=== PATIENT | male | born 1970 | race Caucasian/White ===

== ENCOUNTER 2019-10-27 08:09 | Day surgery (SDC) | payer BC ==
[~2019-10-27] VITALS: Ht 175.3 cm; Wt 94.8 kg
[~2019-10-27 08:09] MED LIST: FLAGYL500 MG PO; LEVAQUIN500 MG PO; NORCO 5-325 TA1 EACH PO; ZOFRAN8 MG PO
--- NOTE | 2019-10-27 10:40 | NUR ---
10/27/19 1040 Alma Otero 1031 PATIENT ARRIVING AWAKE, ASKING QUESTIONS ABOUT PROCEDURE.
--- NOTE | 2019-10-27 13:30 | OR ---
[facility] [address], [place] [address] Signed DATE OF OPERATION: 10/27/2019 SURGEON: Crista Pulliam MD PREOPERATIVE DIAGNOSES: 1. Generalized abdominal pain. 2. Diarrhea. 3. Mucus. 4. Intermittent blood per rectum. 5. Unspecified colonic mass in mid sigmoid colon on CT scan. POSTOPERATIVE DIAGNOSES: 1. 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 2. Minimal esquivel-diverticulosis. 3. Colonic polyps x5 distal right colon/hepatic flexure. 4. 12 mm sessile polyp proximal transverse colon (tattoo). 5. Distal rectal polyps x4 (4 mm). 6. 10 mm polyps x2 at 12 cm. PROCEDURE: Colonoscopy with snare polypectomy, hot biopsy and tattoo at proximal transverse colon. INDICATIONS: Romy is a 49-year-old gentleman asked to see me for a colonoscopy. He said the last nine months, he has been having crampy abdominal pain, particularly on the left and right lower quadrant. He often has diarrhea, blood and mucus. He had been to his primary care provider. He took Levaquin and Flagyl back at the end of August. He thought maybe he felt better. He had a CT scan at the end of August 2019 and there was eccentric wall thickening in his mid sigmoid colon with narrowing and pericolonic stranding. He has a small umbilical hernia and small bilateral inguinal hernias. No involvement of the rectum. He was asked to see me for his colonoscopy. He tells me there is no family history of colon cancer or polyps. No family history of inflammatory bowel disease. He has been online reading on the Internet. He is convinced he has ulcerative colitis. In the office, I gave Merna booklet on colonoscopy. We looked at that together along with the risks including, but not limited to gas bloating, crampy abdominal pain, bleeding, perforation requiring surgery, and missed diagnosis. We also discussed the need for IV conscious sedation. He had expressed understanding and wished to proceed. PROCEDURE NOTE: Electronically Signed By: CRISTA PULLIAM MD 10/27/19 1330 PATIENT NAME: ROMY OLSON OPERATIVE REPORT DATE OF : 74 REPORT #: [id number] PHYSICIAN: CRISTA PULLIAM MD PCP: CRUZ HERNANDEZ MD REPORT IS CONFIDENTIAL AND NOT TO BE RELEASED WITHOUT AUTHORIZATION [facility] [address], [place] [address] Signed Romy was taken into our endoscopy suite and placed in the left lateral decubitus position. He was given a total of 8 mg of Versed and 225 mcg of fentanyl to cover the case. A digital rectal exam was performed and this was unremarkable. No external hemorrhoids and good sphincter tone. The adult colonoscope was introduced and advanced up to 20 cm where we encountered his circumferential distal sigmoid colonic mass/tumor. The adult colonoscope could not fit through the lumen. We went ahead and took a couple of biopsies from the distal end of that tumor. We also removed the polyps in the rectum with a hot biopsy forceps. We used the snare on the two larger polyps at about 12 cm. After this, we retroflexed the scope and there was no additional pathology noted above the anal canal. We then exchanged our adult colonoscope for the adult gastroscope. The adult gastroscope was introduced up to the tumor at 20 cm. It was just able to fit through the lumen, which means it is 10 mm in diameter. That tumor is fairly long actually. Once we got proximal to the tumor, the colon opened up nicely and we traveled all around to the cecum itself. His prep was quite good. We could easily see the appendiceal orifice and the ileocecal valve. The prep was quite good. We took multiple pictures for photodocumentation. As the scope was withdrawn, we removed the above mentioned polyps in the distal right colon, hepatic flexure and proximal transverse colon with the help of a hot biopsy forceps as well as the snare. The largest was in the proximal transverse colon, so we left a tattoo immediately underneath that tattoo at that location. We saw just a single diverticulum in the proximal right colon with some stool. He had a few small diverticula in the proximal to mid sigmoid colon. Again, the scope was withdrawn back down through the tumor. The gas was suctioned out and the adult gastroscope had been removed. Romy had tolerated his procedure quite well. RECOMMENDATIONS: We will send for a CEA level in the recovery room. I will review this with Romy and his . He will need a CT scan of his chest and he will need the sigmoid colon resected, possibly a total abdominal colectomy depending on the pathology results. Crista Pulliam MD ALB/ESPERANZAL /[id number] cc: Cruz Hernandez MD Electronically Signed By: CRISTA PULLIAM MD 10/27/19 1330 PATIENT NAME: ROMY OLSON OPERATIVE REPORT DATE OF : 74 REPORT #: [id number] PHYSICIAN: CRISTA PULLIAM MD PCP: CRUZ HERNANDEZ MD REPORT IS CONFIDENTIAL AND NOT TO BE RELEASED WITHOUT AUTHORIZATION [facility] [address] [place], [place] [address] Signed Crista Pulliam MD Copies: CRISTA PULLIAM MD ~ Electronically Signed By: CRISTA PULLIAM MD 10/27/19 1330 PATIENT NAME: ROMY OLSON OPERATIVE REPORT DATE OF : 74 REPORT #: [id number] PHYSICIAN: CRISTA PULLIAM MD PCP: CRUZ HERNANDEZ MD REPORT IS CONFIDENTIAL AND NOT TO BE RELEASED WITHOUT AUTHORIZATION
--- NOTE | 2019-10-31 13:42 | PATH ---
[facility] [address] [facility] [place] [address] Signed SPECIMEN(S): A COLON POLYPS AT 12 CM SPECIMEN(S): B RECTAL POLYP SPECIMEN(S): C COLON MASS AT 20 CM SPECIMEN(S): D DISTAL ASCENDING POLYP SPECIMEN(S): E PROXIMAL TRANSVERSE POLYP SPECIMEN(S): F COLON POLYP AT 50 CM SPECIMEN SOURCE: A. COLON POLYPS AT 12 CM B. RECTAL POLYP C. COLON MASS AT 20 CM D. DISTAL ASCENDING POLYP E. PROXIMAL TRANSVERSE POLYP F. COLON POLYP AT 50 CM CLINICAL HISTORY: Abdominal pain, abnormal CT. Dx: 20 cm mass, polyps. MICROSCOPIC DESCRIPTION: Histologic sections of all submitted blocks are examined by light microscopy. These findings, together with the gross examination, support the pathologic diagnosis. FINAL PATHOLOGIC DIAGNOSIS: A. Colon, polyps at 12 cm, polypectomy: - Fragments of hyperplastic polyps. - Negative for dysplasia or malignancy. B. Rectum, polyps, polypectomy: - Fragments of hyperplastic polyps. - Negative for dysplasia or malignancy. C. Colon, mass at 20 cm, biopsy: - Well differentiated invasive adenocarcinoma. - See comment. D. Colon, distal ascending, polyp, polypectomy: - Fragments of tubulovillous adenoma. - Negative for high-grade dysplasia or malignancy. E. Colon, proximal transverse, polyp, polypectomy: - Fragments of tubulovillous adenoma. - Negative for high-grade dysplasia or malignancy. F. Colon, polyp at 50 cm, polypectomy: - Colonic mucosa with polypoid hyperplasia. - Negative for dysplasia or malignancy. PATIENT NAME: ROMY OLSON PATHOLOGY DATE OF : 74 REPORT #: [id number] PHYSICIAN: JIMMIE PATHOLOGY PCP: LILLY HERNANDEZ MD REPORT IS CONFIDENTIAL AND NOT TO BE RELEASED WITHOUT AUTHORIZATION [facility] [address] [place], [place] [address] Signed COMMENT: As part of [facility]' Quality Improvement Program, part C of this case was reviewed by another member of our pathology staff. The results of part C were discussed with Dr. Del Rio on 10/31/2019. Mismatch repair (MMR) testing by IHC has been ordered and will be reported by addendum. BRAF mutation testing may not be indicated in the absence of metastatic disease and has not been ordered. If testing is desired, please contact [facility] with prior authorization if applicable. NAL:BES:cml:C1NR GROSS DESCRIPTION: Six specimens are received in six containers, labeled "KAREEM." A. The specimen, labeled "KAREEM, colon polyps at 12 cm," is received in formalin and consists of four pink-salinas soft tissue fragment(s) that measure 0.2-0.6 cm in greatest dimension. The biggest tissue fragment is inked and bisected. The specimen is entirely submitted in cassette (A1). B. The specimen, labeled "KAREEM, rectal polyps," is received in formalin and consists of four pink-salinas soft tissue fragment(s) that measure 0.2-0.3 cm in greatest dimension. The specimen is entirely submitted in cassette (B1). C. The specimen, labeled "KAREEM, colon mass at 20 cm," is received in formalin and consists of three pink-salinas soft tissue fragment(s) that measure 0.2-0.3 cm in greatest dimension. The specimen is entirely submitted in cassette (C1). D. The specimen, labeled "KAREEM, distal ascending polyp," is received in formalin and consists of nine pink-salinas soft tissue fragment(s) that measure 0.1-0.7 cm in greatest dimension. The biggest tissue fragment is inked and trisected. The specimen is entirely submitted in cassette (D1). E. The specimen, labeled "KAREEM, proximal transverse polyp," is received in formalin and consists of four pink-salinas soft tissue fragment(s) that measure 0.2-1.1 cm in greatest dimension. The biggest tissue fragment is serial sectioned and entirely submitted in single cassette (E2). The specimen is entirely submitted in cassette (E1-E2). F. The specimen, labeled "KAREEM, colon polyp at 50 cm," is received in formalin and consists of one pink-salinas soft tissue fragment that measures 0.2 cm in greatest dimension. The specimen is entirely submitted in cassette (F1). PATIENT NAME: ROMY OLSON PATHOLOGY DATE OF : 74 REPORT #: [id number] PHYSICIAN: JIMMIE PATHOLOGY PCP: LILLY HERNANDEZ MD REPORT IS CONFIDENTIAL AND NOT TO BE RELEASED WITHOUT AUTHORIZATION [address] [address] Signed JS (under the direct supervision of a pathologist) The Gross Description was prepared using a voice recognition system. The report was reviewed for accuracy; however, sound-alike word errors, addition and/or deletions may occur. If there is any question about this report, please contact Client Services. PERFORMING LABORATORY: The technical component was performed by [facility], [address] [place] [id number] (Fisheries Diver: Jessica Osorio MD; CLIA# [id number]). [facility], [address] [place] [address] (Fisheries Diver: Mike Chamberlain MD; CLIA# [id number]). Diagnostician: Megha Tuttle MD Pathologist Electronically Signed 10/31/2019 Copies: ~ PATIENT NAME: ROMY OLSON PATHOLOGY DATE OF : 74 REPORT #: [id number] PHYSICIAN: JIMMIE MARRERO PCP: LILLY HERNANDEZ MD REPORT IS CONFIDENTIAL AND NOT TO BE RELEASED WITHOUT AUTHORIZATION
== END 2019-10-27 11:16 | disposition home or self-care (01) ==
LOC: DS 08:09 → OPS 08:09 → DS 09:45 → OPS 09:45
PROVIDERS: Colon & Rectal Surgery
PROC: 0DBL8ZZ Excision of Transverse Colon, Via Natural or Artificial Opening Endoscopic (ICD-10-PCS; 2019-10-27)
PROC: 0DBE8ZZ Excision of Large Intestine, Via Natural or Artificial Opening Endoscopic (ICD-10-PCS; 2019-10-27)
PROC: 0DBP8ZZ Excision of Rectum, Via Natural or Artificial Opening Endoscopic (ICD-10-PCS; 2019-10-27)
PROC: 0DBK8ZZ Excision of Ascending Colon, Via Natural or Artificial Opening Endoscopic (ICD-10-PCS; principal; 2019-10-27 09:45)
DX: C18.9 Malignant neoplasm of colon, unspecified (principal); D12.2 Benign neoplasm of ascending colon; D12.3 Benign neoplasm of transverse colon; K57.31 Diverticulosis of large intestine without perforation or abscess with bleeding; K63.5 Polyp of colon; K62.1 Rectal polyp; I10 Essential (primary) hypertension; F17.210 Nicotine dependence, cigarettes, uncomplicated; Z79.899 Other long term (current) drug therapy
CPT/HCPCS: 36415; 82378; 99153; G0500; J2250; J3010; J7121

== ENCOUNTER 2019-11-14 13:24 | Inpatient (IN) | payer BC ==
[~2019-11-14] VITALS: Ht 175.3 cm; Wt 86.9 kg
--- NOTE | 2019-11-25 08:06 | NUR ---
PT ALERT, ORIENTED AND SUPPORTED BY HIS AND OTHER VISITORS. GAVE ENCOURAGEMENT, OUTLINED TODAY. PT THANKED ME AND REQUESTED PRAYER. WILL FOLLOW NEEDED
--- NOTE | 2019-11-25 09:00 | NUR ---
DENIES ANY NEEDS. IV SITE BENIGN. ABX STARTED.
--- NOTE | 2019-11-25 10:08 | NUR ---
NUT PICKER CS GIVEN HEPARIN TO GIVE AFTER BLOCKS.
--- NOTE | 2019-11-25 13:37 | NUR ---
11/25/19 1337 Sheets,Anne 1332 PT ARRIVED TO PACU ON 6L VIA MASK, ORAL AIRWAY IN PLACE. RESP EVEN AND UNLABORED. PT NONAROUSABLE. ICE TO ABD. VSS.
--- NOTE | 2019-11-25 14:50 | NUR ---
PT ARRIVED TO FLOOR VIA STRETCHER WITH EYES CLOSED. AWAKES TO VERBAL STIMULI. REPORTS PAIN AT 8/10. 0.5 DILAUDID ADMINSTERED. IV FLUIDS STARTED AND MEDICAITONS GIVEN. DRESSING TO ABDOMEN C/D/I WITH GAUZE AD TAPE PRESENT. CPOX PLACED. 2L NC IN PLACE. SCD'S ON. VITALS TAKEN AND STABLE. CALL LIGHT IN REACH.
--- NOTE | 2019-11-25 16:00 | NUR ---
PATIENT LYING IN BED WITH EYES CLOSED. SATS 99 ON 2L NC. PATIENT REPORTS PAIN 8/10. PAIN MEDS ADMINISTERED. FAMILY AT BEDSIDE. CALL LIGHT IN REACH.
--- NOTE | 2019-11-25 16:50 | NUR ---
VITALS TAKEN. BLOOD PRESSURE ELEVATED. DR PULLIAM NOTIFIED. 1MG DILAUDID GIVEN FOR 910 PAIN. DRESSING STILL C/D/I. BOWEL TONES ACTIVE. D5LR AT 100 INFUSING. 2L NC STILL IN PLACE. CPOX ON. CALL LIGHT IN REACH.
--- NOTE | 2019-11-25 19:19 | NUR ---
PT REPORTING 9/10 PAIN AFTER AMBULATING TO BATHROOM. VOIDED 400 ML. PRN PAIN MEDICAITON AND ZOFRAN ADMINSITERED. CALL LIGHTI N REACH CPOX IN PLACE, SCD'S ON.
--- NOTE | 2019-11-25 20:14 | NUR ---
c/o 05/21 abd pain, medicatged with 2 norco
--- NOTE | 2019-11-25 21:37 | NUR ---
VOUCHER CLERK ROUNDING NOTE. PT RESTING IN BED WITH EYES CLOSED. SLEEPING IN CHAIR NEXT TO BED. PT DOES NOT WAKE WHILE WRTIER AT DOORWAY. CALL IGHT IN REACH. WHITE BOARD UPDATED.
--- NOTE | 2019-11-25 21:38 | NUR ---
c/o 05/21 abd pain, norco not effective, medicated with dilaudid 1mg IV.
--- NOTE | 2019-11-25 22:40 | NUR ---
C/O ABD PAIN, MEDICATED WITH 800MG MOTRIN FOR 7/10 ABD PAIN. MIDLINE ABD DRESSING CDI. EMMANUELLE, SCDS IN PLACE, CPOX IN PLACE
--- NOTE | 2019-11-26 00:08 | NUR ---
C/O 04/20 ABD PAIN, MEDICATED WITH DILAUDID 1MG IV. REPOSITINED IN BED.
--- NOTE | 2019-11-26 01:39 | NUR ---
up to br, voided large amount of yellow urine, back to bed, belching, denied passing gas rectally, abd incision dressing cdi. IVF infusing w/o problems. C/o 7-05/21 abd pain, medicated with Dilaudi 1mg IV, and 1 po norco. Repositioned in bed, O2 back on, scds in place. Continuous on fluids restrictions, call light at bedside, CPOX in place, sats 96-100%
--- NOTE | 2019-11-26 03:22 | NUR ---
aWAKES EASILY, NO FURTHER C/O ABD PAIN AT THIS TIME, o2 IN P[LACE, SCDS, cpox 99% 2lnc. CALL LIGHT AT BEDSIDE, FAMILY ROOMING IN
--- NOTE | 2019-11-26 04:58 | NUR ---
C/O ABD PAIN 03/21, MEDICATED WITH DILAUDID 1MG IV. UP TO BR, VOIDED, BACK TO BED, TOLERATED WELL, NO FURTHER C/O PENILE PAIN EITHER, NO N/V, CPOX IN PLACE, O2 2L NC IN PLACE, SCDS IN, CALL LIGHT AT BEDSIDE
--- NOTE | 2019-11-26 05:02 | NUR ---
PT HAD A SIGNOID COLECTOMY SURGERY, MIDLINE ABD INCISION DRESSING CDI, EMMANUELLE, AREA TENDER TO TOUCH, BELCHING, DENIES PASSING RECTAL GAS. HAS BEEN UP TO BR X2, VOIDIING QS, TOLERATED WALKING FAIR. HAS BEEN MEDICTED WITH DILAUDID 1MG IV 4X, MOTRIN 800MG X1, NORCO X2, WITH FAIR PAIN RELIEF. CPOX AND SCDS IN PLACE, WEARING O2 AT 2L NC OFF AND ON THIS SHIFT, SATS 96-100%. TOLERATING FLUID RESTRICTIONS WELL. CALL LIGHT AT BEDSIDE, IN ROOM.
--- NOTE | 2019-11-26 05:37 | NUR ---
PT C/O 5-03/21 ABD PAIN, MEDICATED WITH 1 NORCO. AWAKE, WATCHING TV. BELCHING, DENIES PASSING RECTAL GAS, TOLERATING FLUID RESTRICTIONS
--- NOTE | 2019-11-26 06:47 | OR ---
[facility] [address], [place] [address] Signed DATE OF OPERATION: 11/25/2019 SURGEON: Crista Pulliam MD PREOPERATIVE DIAGNOSIS: Circumferential sigmoid colon cancer (20 cm). 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 PROCEDURE: Sigmoid colectomy with Mora side-to-end colorectal anastomosis, hand-sewn two layers. ESTIMATED BLOOD LOSS: None. FINDINGS: Tumor was lying adjacent to the dome of the bladder. INDICATIONS: Romy is a 49-year-old gentleman who probably for more than one year has been having trouble with lower abdominal crampy pain. He said it is left than the right. He often has blood, mucus, and diarrhea. He had been to his primary care provider. Levaquin and Flagyl were given in August 2019. He seemed to think it was a little better. However, the symptoms seemed to continue, so he had a CT scan of the abdomen and pelvis performed. There was a thickening in the mid to distal sigmoid colon. The rectum did not appear involved. He has no family history of colon cancer or polyps. There is no family history of inflammatory bowel disease. He was referred to me for a colonoscopy on October 27, 2019. He had circumferential sigmoid colon cancer at 20 cm. I had to use the adult gastroscope to get through the tumor and all up to the cecum itself. We took out multiple hyperplastic and tubulovillous adenomatous polyps. We were indeed left a tattoo in the proximal transverse colon. He also had just a little bit of diverticulosis in the colon. We went back and looked at the CT scan. There was no obvious metastatic disease. We ordered a CT scan of his chest. There was no metastatic disease in the chest, but he does have some blebs in his lungs consistent with the smoking. He had a CEA level drawn the day of the colonoscopy and it was slightly elevated at 4.43. I had met with Romy and his in the office. I gave him a brochure on colorectal polyps and cancer. We went through a page by page. I circled the sections relevant to him including the location of the tumor. We reviewed the section surgery and went over that in detail as well. They are aware of the nature of Electronically Signed By: CRISTA PULLIAM MD 11/26/19 0647 PATIENT NAME: ROMY OLSON OPERATIVE REPORT DATE OF : 74 REPORT #: [id number] PHYSICIAN: CRISTA PULLIAM MD PCP: CRUZ HERNANDEZ MD REPORT IS CONFIDENTIAL AND NOT TO BE RELEASED WITHOUT AUTHORIZATION [facility] [address] [place], [place] [address] Signed the surgery along with its risks including, but not limited to bleeding, infection, scarring, change in contour of the skin, damage to the ureters, anastomotic leak, incisional hernias, and other unforeseen comorbidities. We also reviewed the expected intraop and postop course. They had expressed understanding and wished to proceed. PROCEDURE NOTE: I met with Romy, his , and his mom and dad in our preop area. After reviewing their questions, Romy was taken into the operating room and placed in supine position. He was placed under general endotracheal tube anesthesia. He was given preoperative antibiotics along with subcutaneous heparin. SCDs were utilized. A Moody catheter had been inserted with return of clear yellow urine without difficulty. Bilateral tap blocks were placed by our nurse batch unloader. After this, he was prepped and draped in the usual sterile fashion. We utilized a standard periumbilical midline incision and carried this into the abdomen with the help of the cautery. The tumor was lying next to the bladder and it quite readily. We did not see any obvious residual on the dome of the bladder. We took a few minutes along the left white line of Toldt with our cautery and freed up the sigmoid colon longterm to the splenic flexure. We took this down past the tumor into the rectum itself, down into the pelvis next to the rectum. We did the same thing on the right side at the base of the mesentery. We then placed the Bookwalter retractor and packed the small bowel up and out of the way. We identified the left ureter and the right ureter. After this, we went distal to his tumor probably about 4 to 5 cm. We circumferentially cleared the top of the rectum with the help of the cautery and Pean clamps. The top of the rectum was divided with the TA-60 stapler. The mesorectum and mesocolon were then divided between Pean clamps and 0 Vicryl ties. We divided the sigmoid colon about 10 cm or so proximal to the tumor. We had plenty of length to bring the sigmoid colon down to the top of the rectum. We left kelvin in the proximal sigmoid colon specimen and then silk suture on the distal sigmoid colon specimen. The specimen had been opened on the back table by our nurse and pictures were taken for photodocumentation. After this, we performed a standard side-to-end colorectal anastomosis in 2 layers with interrupted silk sutures in continuous running 3-0 Vicryl sutures for the inner layer. The pelvis was then irrigated and suctioned out until clear. The small bowel was then returned to its position. The Bookwalter retractor was removed. We added some additional bupivacaine above the umbilicus in the abdominal wall on either side. After this, the wound was irrigated and suctioned out until clear. We then closed the midline fascia with interrupted [id number] #1 PDS sutures. We then irrigated the wound once again, brought the dermis back together with interrupted 3-0 subcuticular Monocryl sutures. The skin edges were then reapproximated with kelvin. Dry gauze and tape were then applied. Romy's Moody catheter was removed without difficulty. He was awakened from his anesthesia, extubated in the OR, and taken to recovery room in stable condition. Electronically Signed By: CRISTA PULLIAM MD 11/26/19 0647 PATIENT NAME: ROMY OLSON OPERATIVE REPORT DATE OF : 74 REPORT #: [id number] PHYSICIAN: CRISTA PULLIAM MD PCP: CRUZ HERNANDEZ MD REPORT IS CONFIDENTIAL AND NOT TO BE RELEASED WITHOUT AUTHORIZATION [facility] [address] [place] [address] Signed Crista Pulliam MD ALB/MODL /[id number] cc: MD Cruz Quintana MD Andrew L Bower, MD Copies: CECE NICOLAS MD, ANDREW L MD ~ Electronically Signed By: CRISTA PULLIAM MD 11/26/19 0647 PATIENT NAME: ROMY OLSON OPERATIVE REPORT DATE OF : 74 REPORT #: [id number] PHYSICIAN: CRISTA PULLIAM MD PCP: CRUZ HERNANDEZ MD REPORT IS CONFIDENTIAL AND NOT TO BE RELEASED WITHOUT AUTHORIZATION
--- NOTE | 2019-11-26 07:10 | NUR ---
PT LYING IN BED AWAKE. SCD'S IN PLACE. RESPIRATIONS EQUAL AND UNLABORED, SATS 98 RA. REPORTS BELCHING BUT NOT PASSIN GAS. SPOKE WITH PATIENT ABOUT SHOWERING LATER THIS AFTERNOON, PT DECLINES FOR NOW. NO REPORTS OF PAIN. SLEEPING IN ROOM,CALL LIGHT ACCESSIBLE.
--- NOTE | 2019-11-26 09:49 | NUR ---
PT REPORTING 8/10 ABDOMINAL PAIN. PRN NORCO ADMINSTERED. DRANK 200ML FLUID WITH NO PROBLEMS. SBA TO BATHROOM THEN UP TO CHAIR. CALL LIGHT AND PERSONAL ITEMS WITHIN REACH.
--- NOTE | 2019-11-26 10:19 | NUR ---
PATIENT IN CHAIR, VISITORS IN ROOM. CALL LIGHT IN REACH. LINENS CHANGED. CALL LIGHT IN REACH. NO FURTHER NEEDS AT THIS TIME.
--- NOTE | 2019-11-26 13:28 | NUR ---
PATIENT AMBULATED IN DISLA (CIRCLED AROUND NURSING STATION). PAIN REPORTED 6/10. PT ANTICIPATING NEXT SCHEDULED DOSE OF NORCO AT 1345. RESPIRATIONS EQUAL AND UNLABORED ON RA. PATIENT RETURNED TO CHAIR. PARENTS INN ROOM. CALL LIGHT IN REACH.
--- NOTE | 2019-11-26 15:04 | NUR ---
PATIENT IN CHAIR, VISITORS IN ROOM. CALL LIGHT IN REACH. NO FURTHER NEEDS AT THIS TIME.
--- NOTE | 2019-11-26 16:01 | NUR ---
PATIENT UP AD KULWANT SHOWERING. RETURNED TO CHAIR. SATS 99% ON RA. RESPIRATIONS EQUAL AND UNLABORED. PAIN REPORTED 4/10. CONTINUOUS FLUIDS RUNNING AT 100ML/HR. NO NEEDS REPORTED AT THIS TIME. CALL LIGHT IN REACH.
--- NOTE | 2019-11-26 16:09 | NUR ---
PT SALINE LOCKED FOR INDEPENDENT SHOWER. PAIN 03/21. CALL LIGHT IN REACH.
--- NOTE | 2019-11-26 18:35 | NUR ---
PATIENT AMBULATED IN DISLA WITH . REPORTS 7/10 PAIN IN LOWER ABDOMEN. ADMINISTERED NORCO PER ORDER. PATIENT REPORTS NO FLATULENCE BUT BOWEL TONES ARE ACTIVE. PATIENT RETURNED TO BED. SUPPLIED WARM BLANKETS. FAMILY AT BEDSIDE. CALL LIGHT IN REACH.
--- NOTE | 2019-11-26 19:18 | NUR ---
report obtained from Sonja APONTE and Mary Jane WILLS. Pt playing cards with family. Pt will call when family leaves for RN to do assessment. IVF infusing w/o problems, scds in place, abd incisino with ss midline abd intact, pink, dry, call light at bedside, pt tolerating fluid restrictions
--- NOTE | 2019-11-26 20:55 | NUR ---
In bed, coop with assessment, on room air, no c/o pain. midline abd incision with kelvin, edges well approx, pink,dry, scds in place, IVf infusing w/o problems. No c/o N?V, tolerating fluid restriction well
--- NOTE | 2019-11-26 22:32 | NUR ---
PT C/O 7/10 ABD PAIN, BELCHING, DENIES PASSING RECTAL GAS. MEDICATED WITH 2 NORCO., TOLERATING FLUID RESTRICTIONS. FAMILY IN ROOM
--- NOTE | 2019-11-27 00:03 | NUR ---
resting, on room air, no resp distress. IVF infusing, SCDS in place. call light at bedside
--- NOTE | 2019-11-27 02:05 | NUR ---
awake, c/o 6/10 abd pain. Medicated with Ibuprofen 800mg po, tolerating fluids restriction, repositions self in bed, scds in place, on room air
--- NOTE | 2019-11-27 03:32 | NUR ---
aWAKE, C/O 7/10 PAIN, STATED THAT MOTRIN WAS NOT VERY EFFECTIVE, MEDICATED WITH NORCO 2 TABS. UP TO BR INDEPENDENT, VOIDED LARGE AMOUNTS OF DARK YELLOW URINE, BACK TO BED. ABD INCISION W EWA IN PLACE, DENIES PASSING RECTAL GAS, BELCHING, TOLERATING FLUIDS RESTRICTION, CALL LIGHT AT BEDSIDE
--- NOTE | 2019-11-27 06:19 | NUR ---
Pt has been medicated x2 with [place] and 1 MOtrin per abd pain with good to fair pain relief. Belching but not passing recal gas. Midline abd incision with kelvin inplace, pink, dry, well approx edges. scabbing over. IVF infusing, SCDS in place. Tolerating clears w fluid restriction. Has walked up to br and voiding QS urine, gets self back to bed. Call light at bedside
--- NOTE | 2019-11-27 07:10 | NUR ---
RECIEVED BEDSIDE REPORT FROM FADI YAÑEZ. PT IS AWAKE AND ALERT IN BED, FAMILY AT BEDSIDE. IVF RUNNING PER ORDER. PT HAS BEEN INDEPENDENT IN ROOM OVERNIGHT. ENCOURAGE PT TO WALK THIS SHIFT, PT IS AWARE OF POC AND AGREES.
--- NOTE | 2019-11-27 07:26 | NUR ---
pt in bed . c/o 03/21 abd pain, medicated with 2 [place] tabs. Pt stated Passing gas rectally now, several times now. WIll notify incoming RN. Visiting with family
--- NOTE | 2019-11-27 09:04 | NUR ---
RN IN ROOM WHEN MD ROUNDED. ADVANCED DIET TO FULL LIQUID AND REMOVED FLUID RESTRICTION. INCISION IS C/D/I, SLIGHTLY PINK ALONG EDGES BUT WITHIN PRAMATERS. PT IS BELCHING AND PASSING FLATUS. HAS BEEN UP WALKING HALLS X1 THIS MORNING. HE HAS AGREED TO WALK AGAIN AFTER BREAKFAST AND GET IN THE CHAIR. HE HAS PLANS TO PLAY GAMES WITH FAMILY TODAY.
--- NOTE | 2019-11-27 10:13 | NUR ---
PATIENT IN CHAIR WATCHING TV. PATIENT SAID HE DOESNT FEEL WELL AFTER EATING BREAKFAST, RN NOTIFIED. CALL LIGHT IN REACH. NO FURTHER NEEDS AT THIS TIME. LINENS CHANGED. PATIENT WANTS TO SHOWER LATER.
--- NOTE | 2019-11-27 11:45 | NUR ---
PT IS IN BED, DENIES NAUSEA AT THIS POINT, BUT DOES NOT WANT TO ORDER LUNCH. REQUESTED 2 NORCO, GIVEN.
--- NOTE | 2019-11-27 14:44 | NUR ---
PATIENT IN BED, IN ROOM. FRESH WATER GIVEN. CALL LIGHT IN REACH. NO FURTHER NEEDS AT THIS TIME.
--- NOTE | 2019-11-27 15:12 | NUR ---
MED REC COMPLETED. PATIENT STATES HE DOES NOT TAKE ANY ROUTINE MEDICATIONS.
--- NOTE | 2019-11-27 18:06 | NUR ---
PATIENT SITTING IN BED KALINAING STARR WITH FAMILY. COFFEE GIVEN. CALL LIGHT IN REACH. NO FURTHER NEEDS AT THIS TIME.
--- NOTE | 2019-11-27 18:41 | NUR ---
PT HAS BEEN UP WALKING IN HALLS MULTIPLE TIMES WITH HIS FAMILY. HE STATES HIS PAIN IS WELL CONTROLLED WITH PRN NORCO. HE ATE SMALL AMOUNT OF DINNER, TRYING TO AVOID EATING TO MUCH.
--- NOTE | 2019-11-27 19:37 | NUR ---
in bed, gets up to br, voiding QS, coop with assessment. Abd soft, tender, passing gas, midline incision edges well approx, dry, kelvin in place. Fluids at bedside, no c/o n/v.
--- NOTE | 2019-11-27 23:54 | NUR ---
UP TO BR EARLIER, NO FURTHER C/O PAIN, WALKED HALLWAYS UP AND DOWN WITH , PT STATES PASSING RECTAL GAS BUT NOT OFTEN EARLIER IN AM. TOLERATING FULL LIQUID DIET, BACKT O BED, SCDS IN PLACE, ON ROOM AIR, CALL LIGHT AT BEDISE, IVF INFUSING
--- NOTE | 2019-11-28 01:09 | NUR ---
awake, denies further c/o pain, call light at bedside
--- NOTE | 2019-11-28 02:31 | NUR ---
RESTING, NO DITRESS, IVF INFUSING, NO C/O PAIN
--- NOTE | 2019-11-28 04:52 | NUR ---
C/O 04/20 ABD PAIN, MEDICATED WITH 2 NORCO AND 1 MOTRIN 800MG PO. GETS UP TO BR , VOIDING QS. NO C/O N/V
--- NOTE | 2019-11-28 05:03 | NUR ---
PT ON ROOM AIR, MIDLIND AB INCISION W EWA IN PLACE, EDGES PINK, WELL APPROXIMATED, DRY. PASSING GAS, GETS UP TO BR AND HAS BEEN VOIDING QS URINE. HAS BEEN MEDICATED X3 WITH NORCO AND 1X W MOTRIN WITH FAIR TO GOOD PAIN RELIEF. HAS WALKED HALLWAYS WITH . ON FULL LIQUIDS, NO N.V, TOLERATING FAIR. IVF INFUSING W/O PROBLEMS
--- NOTE | 2019-11-28 07:08 | NUR ---
RECIEVED BEDSIDE REPORT FROM FADI YAÑEZ. PT IS UP INDEPENDENTLY TO BATHROOM. PT IS INDEPENDENT IN ROOM. PT NEEDS FREQUENT ENCOURAGEMENT TO GET UP AND WALK, WHICH HE DOES WITH FAMILY. PT IS ANXIOUS ABOUT EATING, ONLY ATE ABOUT 10%, OFFERED REASSURANCE THAT HE IS AT THE EXPECTED POINT OF HEALING, BUT HE WON'T CONTINUE TO HEAL WITHOUT EATING.
--- NOTE | 2019-11-28 08:06 | NUR ---
RN SET PT UP FOR SHOWER. PT IS ABLE TO SHOWER INDEPENDENTLY. REMINDED PT TO SIT DOWN ON PROVIDED SHOWER CHAIR AND CALL RN IF HE FEELS UNSTEADY, LIGHTHEADED, OR HAS ANY OTHER ISSUES. PT AGREED. PT AGREED TO POC, WALKING Q2 HOURS IS THE GOAL, INCREASEING FREQUENCY AND/OR DISTANCE TODAY. WILL ORDER BREAKFAST.
--- NOTE | 2019-11-28 08:45 | NUR ---
Spoke with Genaro at breakfast. States he has multiple concerns of what will be happening in his future. He is currently on FMLA and has concerns regarding the possibility of chemo or radiation. Lives in [place] with his and works at [employer]. Denies use of DME. Plans on returning home on discharge. Denies needs at this time from CM.
--- NOTE | 2019-11-28 10:58 | NUR ---
PT HAS BEEN UP WALKING IN HALLS X1.
--- NOTE | 2019-11-28 11:56 | NUR ---
JPT SITTING UP IN CHAIR, PLAYING TABLE GAME WITH VISITOR. PT MENTIONED THAT HE HASN'T SLEPT WELL, MOSTLY DUE TO PAIN. FELL ASLEEP LAST NIGHT IN SPITE OF PAIN AND SEEMED TO MAKE HIM FEEL THAT IMPROVEMENT WAS HAPPENING. PT STATED THAT HE IS TO AMBULATE EVERY 2 HRS. THE WAY HE STATED IT, IT WAS MORE OF A CHORE THAN AN OPPORTUNITY. GOOD VISIT, PT THANKED ME FOR COMING BY. GAVE BLESSING, AND LET THEM CONTINUE WITH THEIR GAME. WILL FOLLOW NEEDED
--- NOTE | 2019-11-28 13:55 | NUR ---
PT AND HIS FATHER DID ONE SMALL LAP AROUND THE UNIT.
--- NOTE | 2019-11-28 14:04 | NUR ---
PATIENTS VITALS DONE, PATIET PLAYING CHESS WITH FATHER
--- NOTE | 2019-11-28 19:00 | NUR ---
BEDSIDE REPORT RECEIVED FROM OFFGOING RN, JESICA. PT SITTING UP IN CHAIR PLAYING CHECKERS WITH HIS DAD. THIS TOOLROOM HELPER LET PT KNOW PLAN FOR MEDICATION AND ASSESSMENT TIME. PT STATES AGREEMENT. DENIES OTHER NEEDS AT THIS TIME. CALL LIGHT IN REACH.
--- NOTE | 2019-11-28 22:30 | NUR ---
PT ASSESSMENT COMPLETE. PT RESTING IN BED WATCHING TV. PT HAS BEEN UP IN CHAIR PLAYING GAMES WITH HIS DAD. WALKED IN THE DISLA. PT REPORTS PAIN 7/10 AFTER AMBULATING. PRN NORCO ADMINISTERED. BT'S HYPOACTIVE. MIDLINE INCISION WITH EWA. YU. ABD TENDER TO PALPATION. PT DENIES FURTHER NEEDS. POC FOR THE REST OF THIS SHIFT DISCUSSED WITH PT. PT STATES UNDERSTANDING. WILL USE CALL LIGHT FOR NEEDS.
--- NOTE | 2019-11-29 02:00 | NUR ---
PT RESTING IN BED WITH EYES CLOSED. PT WAKES EASILY WHEN CAMPUS RECRUITING COORDINATOR OPENS THE DOOR. DECLINES PAIN MEDICATION OR FURTHER NEEDS AT THIS TIME. CALL LIGHT WITHIN REACH.
--- NOTE | 2019-11-29 04:15 | NUR ---
PT ASSESSMENT COMPLETE. PT RATES PAIN 04/20 TO ABD. PRN NORCO ADMNISTERED X2. PT ALSO REPORTS NAUSEA, STATES THAT HE IS UNSURE WHETHER IT IS SECONDARY TO PAIN, WOULD LIKE TO HOLD OFF ON NAUSEA MEDICATION, WILL LET WRTIER KNOW IF HE WOULD LIKE PRN ANTIEMETIC. BT'S HYPOACTIVE. ABD SLIGHTLY TENDER TO TOUCH. EWA MIDLINE, NO DRAINAGE NOTED. PT DENIES FURTHER NEEDS. CALL LIGHT WITHIN REACH.
--- NOTE | 2019-11-29 06:40 | NUR ---
PT SLEPT WELL THIS SHIFT. PAIN WELL CONTROLLED WITH PRN NORCO. MIDLINE INCISION WITH EWA, YU. PASSING FLATUS. BT'S ACTIVE. MILD ABD TENDERNESS. PT AMBULATING IN HALLS. INDEPENDENT IN ROOM. FULL LIQ DIET. [id number]@75. UO QS.
--- NOTE | 2019-11-29 07:05 | NUR ---
BEDSIDE REPORT... PT ISSUES OVER NIGHT. PT RESTING IN BED NO DISTRESS AT THIS TIME RR EVEN 18 BPM.
--- NOTE | 2019-11-29 07:37 | NUR ---
PRIMARY RN NOTIFIED RE BP.
--- NOTE | 2019-11-29 08:50 | NUR ---
PT RESTING IN BED AT THIS TIME EYES CLOSED RR 16 BPM SNORING NOTED. ALERT TO VOICE.
--- NOTE | 2019-11-29 10:43 | NUR ---
PATIENT IN BED PLAYING [employer] WITH VISITOR. PATIENT HAS AMBULATED IN HALLWAY. CALL LIGHT IN REACH. NO FURTHER NEEDS AT THIS TIME.
--- NOTE | 2019-11-29 11:04 | NUR ---
PT SITTING UP IN BED PLAYING [employer] GAME WITH VISITORS AT BEDSIDE. PT REPORTS PAIN IS WELL MANAGED AT THIS TIME. ENCOURAGED PATIENT TO DRINK WATER AND WALK.
--- NOTE | 2019-11-29 13:04 | NUR ---
pt resting in bed repots pain 04/20. motrin and norco given prn. pt encouraged to walk again, he has walked twice this am
--- NOTE | 2019-11-29 13:36 | NUR ---
PT LAYING IN BED, WITH SIG OTHER HOLDING HIS HAND. PT STATED HE WAS HAVING TROUBLE WITH NAUSEA AND PAIN AT 6. HE THOUGHT HE WAS TO RECEIVE MORE PAIN MEDS SOON. SHARED THIS WITH FADI PRADHAN. SHE WILL CHECK ON PT. HE THANKED ME FOR COMING BY, GAVE A BLESSING. WILL FOLLOW NEEDED
--- NOTE | 2019-11-29 14:21 | NUR ---
pt resting in bed reports he was sleeping before i came in and woke him up. he said he will get up and walk in halls when he wakes up next.
--- NOTE | 2019-11-29 14:44 | NUR ---
PATIENT IN BED RESTING. CALL LIGHT IN REACH. NO FURTHER NEEDS AT THIS TIME.
--- NOTE | 2019-11-29 15:23 | NUR ---
PT U AMBULATING IN HALLS AT THIS TIME
--- NOTE | 2019-11-29 17:55 | NUR ---
PT UP TO BATHROOM STARTING TO HAVE LOOSE BM OUT, WALKING HALLS FREQUENTLY.
--- NOTE | 2019-11-29 18:01 | NUR ---
PT HAS BEEN UP AMBULATING IN HALLS HAS CONTINUED TO NEED PAIN MEDICATIONS REGULARLY, HAS BEEN EATING SMALL AMOUNTS WITH PAIN MEDICATIONS, SUCH JELLO AND PUDDING. HE IS DRINKING WATER, NO NAUSEA. HE HAS STARTED HAVING LOOSE BM THIS LATE AFTERNOON. MIDLINE INCISION WELL PROXIMATED OPEN TO AIR.
--- NOTE | 2019-11-29 18:52 | NUR ---
PATIENT IN CHAIR PLAYING [employer] WITH VISITOR. FRESH WATER GIVEN. CALL LIGHT IN REACH. NO FURTHER NEEDS AT THIS TIME.
--- NOTE | 2019-11-29 19:58 | NUR ---
RECEIVED REPORT FROM DAY SHIFT RN. PATIENT IS UP AMBULATING IN THE HALLWAY. PATIENT DENIES ANY PAIN OR NAUSEA. NO NEEDS NOTED. CALL LIGHT IN REACH.
--- NOTE | 2019-11-29 21:10 | NUR ---
PATIENT NOTIFIED STAFF THAT HIS IV WAS CAUSING HIM PAIN. PATIENTS IV IS NO LONGER PATENT. PATIENTS IV DC'D. ATTEMPTED TO START IV. THIS RN WAS NOT ABLE TO START IV. FLOAT RN IN TO START IV.
--- NOTE | 2019-11-29 22:00 | NUR ---
PATIENT IS RESTING IN BED. IV INFUSING. IV WAS STARTED BY FLOAT RN. PATIENTS ASSESMENT COMPLETED. PATIENTS ABD IS SOFT AND NOT TENDER. MID ABD INCISION, OPEN TO AIS, C/D/I, AND WELL APPROXIMATED. PATIENT RATES PAIN AT A 6/10. PATIENT GIVEN PRN PAIN MEDICATION. PATIENT IS RESTING IN BED. PATIENTS FATTHER IS PRESENT AT THE BEDSIDE. PATIENT DENIES ANY FURTHER NEEDS. CALL LIGHT IN REACH.
--- NOTE | 2019-11-29 23:56 | NUR ---
PATIENT IS RESTING IN BED WITH EYES CLOSED, RR 15. CALL LIGHT IN REACH.
--- NOTE | 2019-11-30 02:17 | NUR ---
PATIENT IS RESTING IN BED WITH EYES CLOSED, RR 16. CALL LIGHT IN REACH.
--- NOTE | 2019-11-30 03:03 | NUR ---
PATIENT CALLED AND REQUESTED PAIN MEDICATION. PATIENT RATES PAIN AT A 6/10. PATIENT GIVEN PRN PAIN MEDICATION PER ORDER. PATIENT PROVIDED WITH FRESH ICE ATER AND JELLO. PATIENT DENIES ANY FURTHER NEEDS. CALL LIGHT IN REACH.
--- NOTE | 2019-11-30 03:29 | NUR ---
PATIENT NOTIFIED STAFF THAT HE HAD A BM. OBSERVED PATIENTS BM TO BE BROWN IN COLOR AND LIQUID. PATIENTS BM HAS UNCHANGED FROM BEGINNING OF THE SHIFT. PATIENT DENIES ANY FURTHER NEEDS. CALL LIGHT IN REACH.
--- NOTE | 2019-11-30 03:56 | NUR ---
PATIENT GIVEN SECOND TAB OF PRN PAIN MEDICATION TO TITRATE TO MAX DOSE. PATIENT RATES PAIN AT A 4/10. PATIENT STATED "PAIN IS IMPROVING". PATIENTS ABD REMAINS SOFT AND NOT TENDER. NO NAUSEA NOTED. NO FURTHER NEEDS NOTED. CALL LIGHT IN REACH.
--- NOTE | 2019-11-30 05:05 | NUR ---
PATIENT RESTED WELL THROUGHOUT THE SHIFT. PATIENT IS ON A FULL LIQUID DIET, TOELRATING IT WELL, AND NO NAUSEA NOTED. PATIENT IS INDEPENDENT IN THE HALLWAY AND ROOM. PATIENT IS ON RA. SCDS IN USE WHILE IN BED. PATIENT HAD MULTIPLE LIQUID BROWN BMS. PATIENTS BOWET TONES ARE ACTIVE. PATIENT HAS MID ABD INCISION, EWA PRESENT, C/D/I, AND WELL APPROXIMATED. PATIENT RECEIVED PRN PAIN MEDICATION. PATIENT HAS IV FLUID INFUSING PER ORDER. PATIENT IS AAOX4.
--- NOTE | 2019-11-30 05:44 | NUR ---
PATIENT IS RESTING IN BED WATCHING TV. PATIENT RATES PAIN AT A 2/10. PATIENT DENIES THE NEED FOR PAIN MEDICATION AT THIS TIME. PATIENTS VITALS TAKEN AND RECORDED. INTAKE AND OUPUT RECORDED. PATIENT PROVIDED WITH FRESH ICE ATER. PATIENT DENIES ANY NAUSEA. NO FURTHER NEEDS NOTED. CALL LIGHT IN REACH.
--- NOTE | 2019-11-30 07:34 | NUR ---
PT ALERT AND INTERACTIVE AT SHIFT CHANGE. RESTING IN BED, AGREES HE IS COMFORTABLE AND DENIES ANY NEEDS AT THIS TIME. HE IS LOOKING FORWARD TO EATING SOME "REAL FOOD" AGREES TO AMBULATE SEVERAL TIMES THIS SHIFT, AND GO SLOW WITH THE FOOD.
--- NOTE | 2019-11-30 08:15 | NUR ---
Spoke with Genaro. States he had a bad night and did not sleep. Offered to put sign on door to allow to sleep, he declines. States Dr. Del Rio saw him this am and will dc him to home tomorrow.
--- NOTE | 2019-11-30 08:46 | PATH ---
[facility] [address] [place], [place] [address] Signed SPECIMEN(S): A SIGMOID COLON SPECIMEN SOURCE: A. SIGMOID COLON CLINICAL HISTORY: Adenocarcinoma of sigmoid colon. FINAL PATHOLOGIC DIAGNOSIS: Sigmoid colon, sigmoid colectomy: - Invasive colonic adenocarcinoma with the following features: - Tumor site: Sigmoid colon. - Maximum tumor size: 7.5 cm. - Macroscopic tumor perforation: Absent. - Histologic tumor type: Adenocarcinoma. - Histologic grade: Grade 2 of 4 (moderately differentiated). - Microscopic tumor extension: Invades through muscularis propria into subserosal colonic adipose tissue. - Surgical margins: - Proximal, distal and circumferential resection margins: Negative for neoplasm. - Distance from tumor: - Proximal margin: 6.4 cm. - Distal margin: 4.3 cm. - Radial margin: 0.3 cm. - Treatment effect: No prior treatment. - Lymphovascular invasion: Absent. - Perineural invasion: Absent. - Discontinuous extramural extension: Absent. - Microsatellite instability testing: (see comment). - Thirty-six lymph nodes identified: All negative for metastatic malignancy. - AJCC: pT3 pN0. COMMENT: The patient had a previous biopsy received at [facility] 10/27/2019 with a diagnosis of well differentiated invasive adenocarcinoma ([id number]). Microsatellite instability testing was performed on this specimen with results as follows: MLH1: Intact nuclear expression. PATIENT NAME: ROMY OLSON PATHOLOGY DATE OF : 74 REPORT #: [id number] PHYSICIAN: [facility] PCP: LILLY HERNANDEZ MD REPORT IS CONFIDENTIAL AND NOT TO BE RELEASED WITHOUT AUTHORIZATION [facility] [address], [place] [address] Signed MSH2: Intact nuclear expression. MSH6: Intact nuclear expression. PMS2: Intact nuclear expression. Interpretation: Normal pattern. BRAF testing: May not be indicated in the absence of metastatic disease and has not been ordered. If testing is desired please contact [facility] with prior authorization if applicable. As part of [facility]' Quality Improvement Program, this case was reviewed by another member of our pathology staff. TOM:NRT:cml:C1NR MICROSCOPIC EXAMINATION: Histologic sections of all submitted blocks are examined by light microscopy. These findings, together with the gross examination, support the pathologic diagnosis. Immunostain for CK AE1/AE3 is obtained along with an appropriately positive control on block A9 and was negative for the presence of metastatic malignancy. GROSS DESCRIPTION: The specimen, labeled "KAREEM," and designated on the requisition "proximal staple, distal silk, sigmoid colon," is received in formalin and consists of one previously opened and oriented segment of large bowel that is 18.5 cm in length and has an average internal circumference of 7.0 cm. The specimen is indurated. A stapled resection margin is identified as proximal. A black suture is present at the distal resection margin. The serosal surface is pink with one area of red roughening that is a 5.5 x 4.5 cm. This area is inked blue. Upon opening the specimen displays a 7.5 x 4.6 x 1.8 cm circumferential and centrally ulcerated mass that is 4.3 cm from the distal resection margin, 6.4 cm from the proximal resection margin, and 9.5 cm from the vascular root resection margin. This mass is associated with the previously described area of serosal roughening. Sectioning through the mass reveals extension through the muscularis propria and into the adjacent pericolonic adipose tissue. The mass is 0.4 cm from the blue inked serosal surface. The uninvolved bowel wall has an average thickness of 0.9 cm. Upon dissection of the attached pericolonic adipose tissue 38 possible lymph nodes are grossly identified that range in size from 0.4 cm up to 1.6 cm in greatest dimension. One of these lymph nodes is within close proximity of the vascular root margin. One of the larger lymph nodes is grossly positive for tumor. [employer] sections are PATIENT NAME: ROMY OLSON PATHOLOGY DATE OF : 74 REPORT #: [id number] PHYSICIAN: JIMMIE MARRERO PCP: LILLY HERNANDEZ MD REPORT IS CONFIDENTIAL AND NOT TO BE RELEASED WITHOUT AUTHORIZATION [facility] [address], [place] [address] Signed submitted in 21 cassettes. Cassette summary: (A1) Distal resection margin, shave (A2) Proximal resection margin, shave (A3) Vascular root resection margin, shave (A4) Uninvolved bowel wall and one possible lymph node within close proximity of vascular root, bisected (A5) Mass to uninvolved bowel wall (A6) Mass to adjacent adipose tissue (A7-A8) Mass to serosa (A9) Six possible lymph nodes, submitted whole (A10) Six possible lymph nodes, submitted whole (A11) Six possible lymph nodes, submitted whole (A12) Two possible lymph nodes each bisected one arbitrarily inked (A13) Two possible lymph nodes each bisected one arbitrarily inked (A14) Two possible lymph nodes each bisected one arbitrarily inked (A15) Two possible lymph nodes one inked and bisected the opposite trisected (A16) One possible lymph node, trisected (A17) One possible lymph node, trisected (A18) Four possible lymph nodes, smitten whole (A19) Three possible lymph nodes, submitted whole (A20) One possible lymph node, serially sectioned (A21) One possible lymph node, bisected, grossly positive for tumor. FB (under the direct supervision of a pathologist) The Gross Description was prepared using a voice recognition system. The report was reviewed for accuracy; however, sound-alike word errors, addition and/or deletions may occur. If there is any question about this report, please contact Client Services. PERFORMING LABORATORY: The technical component was performed by [id number] [address] (Treatment Specialist: Jessica Osorio MD; CLIA# [id number]). [facility], [address] [place] [address] (CLIA# [id number]). Diagnostician: Mike Chamberlain MD Pathologist Electronically Signed 11/30/2019 PATIENT NAME: ROMY OLSON PATHOLOGY DATE OF : 74 REPORT #: [id number] PHYSICIAN: JIMMIE MARRERO PCP: LILLY HERNANDEZ MD REPORT IS CONFIDENTIAL AND NOT TO BE RELEASED WITHOUT AUTHORIZATION [facility] [address], [place] [address] Signed Copies: ~ PATIENT NAME: ROMY OLSON PATHOLOGY DATE OF : 74 REPORT #: [id number] PHYSICIAN: JIMMIE PATHOLOGY PCP: LILLY HERNANDEZ MD REPORT IS CONFIDENTIAL AND NOT TO BE RELEASED WITHOUT AUTHORIZATION
--- NOTE | 2019-11-30 11:00 | NUR ---
PT C/O OF DISCOMFORT AFTER MORNING MEAL, STATES "I THINK I ATE TOO MUCH" ENCOURAGED AMBULATION. PT CHOOSES TO NAP THEN DOES AMBULATE THE DISLA RETURNS TO RESTING IN BED
--- NOTE | 2019-11-30 11:07 | NUR ---
PT RESTING IN BED. STATED THAT HE WOULD TAKE A WALK AFTER NAP.
--- NOTE | 2019-11-30 12:10 | NUR ---
ASKED PT HOW HE WAS DOING ON HIS COUGHING AND DEEP BREATHING, PT STATED WELL I HAVEN'T DONE THAT AT ALL. ASKED IF HE HAD A SPLINT PILLOW. HE STATED NO. I TOLD HIM I WOULD MAKE ONE AND THAT HE COULD DEMONSTRATE FOR ME. WENT IN ROOM TO GIVE IT TO PT. HE WAS SOUND ASLEEP. TOLD HIS NURSE JANINA AND SHE SAID SHE WOULD WORK WITH [facility] ON IT.
--- NOTE | 2019-11-30 14:00 | NUR ---
PT LAYING IN BED, TV ON. PT SAID HE HAD BEEN UP AMBULATING, AND I QUIZZED HIM HOW HE FELT WHEN WALKING? PT JUST SAID OK AND SAID HE HAD SOME PAIN NOW. HIS RN ROBI MENTIONED TO ME THAT HE NEEDS TO WALK MORE AND HELP GET HIS SYSTEM PERCOLATING ALITTLE MORE. GAVE ENCOURAGEMENT, PT DID STATE THAT PAIN IS HIS BIGGEST ISSUE TO OVERCOME IN HIS PERSPECTIVE. WILL FOLLOW NEEDED
--- NOTE | 2019-11-30 14:11 | NUR ---
PT CONTINUES TO FEEL POORLY SINCE MORNING MEAL. STATES HE FEELS PRESSURE IN HIS ABDOMINAL AREA. HE HAS AMBULATED SEVERAL TIMES THIS SHIFT AND SKIPPED NOON MEAL. RESTING IN BED EYES CLOSED AT THIS TIME
--- NOTE | 2019-11-30 16:16 | NUR ---
PT'S MOTHER ARRIVES FROM OUT OF STATE PT UP AMBULATING THE DISLA VISITING APPEARS TO FEEL "SO MUCH BETTER" NO C/O PAIN OR OTHER. PT PLANNING FOR EVENING MEAL. CAUTIONED PT TO GO SLOW HE AGREES.
--- NOTE | 2019-11-30 17:19 | NUR ---
PATIENT SITTING UP IN CHAIR. IN ROOM. VITAL SIGNS AND I&O DONE. CALL LIGHT WITHIN REACH. NO OTHER NEEDS AT THIS TIME
--- NOTE | 2019-11-30 18:14 | NUR ---
PT TOLERATES EVENING MEAL WELL. C/O ABDOMINAL PAIN LATER IBUPROFEN GIVEN. PT MOTHER IS AT BEDSIDE.
--- NOTE | 2019-11-30 19:26 | NUR ---
PT RESTING IN BED ALERT AND ORIETED REPORTS PAIN IS INCREASING. MOTHER IS SITTING AT BEDSIDE.
--- NOTE | 2019-11-30 19:49 | NUR ---
EDUCATION ON PAIN MANAGEMENT AND ACTIVITY/MOBOITY GIVEN, PT UP TO BATHROOM NOW
--- NOTE | 2019-11-30 20:58 | NUR ---
ROUNDED CHARGE. PATIENT IS RESTING IN BED. PATIENT DENIES ANY COMMENTS, QUESTIONS, OR CONCERNS. NO NEED NOTED. CALL LIGHT IN REACH.
--- NOTE | 2019-11-30 22:30 | NUR ---
PT UP AMBULATING IN HALLS AT THIS TIME. TOLERATING ACTIVITY WELL.
--- NOTE | 2019-12-01 00:06 | NUR ---
PT BACK TO BED AFTER UP TO BATHROOM HAD BM LIQUID. REPORTS PAIN 6/10, 2 TABS NORCO GIVEN AT THIS TIME.
--- NOTE | 2019-12-01 02:33 | NUR ---
PT IN BED EYES CLOSED RR EVEN AT 16 BPM NO DISTRESS NOTED. PT APPEARS TO BE SLEEPING
--- NOTE | 2019-12-01 05:02 | NUR ---
PT HAS BEEN UP AMULATING IN HALLS EARLY IN SHIFT, HAS HAD MORE LOOSE STOOLS. HE HAS BEEN ANXIOUS ABOUT HAVING PAIN MEDICAITONS ON A SCHEDULE AND CONCERNS ABOUT PAIN MEDICATIONS HE WILL HAVE ON DISCHARGE. GAVE EDUCATION ON PAIN MANAGEMENT AND PAIN MEDICATIONS AND SIDE EFFECTS, ALSO PAIN MANAGEMENT ON DISCHARGE. PT ON ROOM AIR, V/S STABLE. IVF INFUSING WNL.
--- NOTE | 2019-12-01 05:27 | NUR ---
PT REQUEST PAIN MEDICATIONS AT THIS TIME FOR 6/10 PAIN. JELLO FOR SNACK TO PERVENT NAUSEA WITH PAIN MEDICATIONS. V/S AND I/O RECORDED, PT HAS NO FURTHER REQUESTS.
--- NOTE | 2019-12-01 07:34 | NUR ---
0707: Report received from Gudelia APONTE. Pt resting in his bed with no complaints at this time. Call meraz within reach. Pt states he is planning on going home today.
--- NOTE | 2019-12-01 08:10 | NUR ---
Spoke with pt in room as he returns from walking in the condon. States he had a better night last night and is going home today. He denies any needs for safe discharge. Plans of discharging to home to day with his .
[2019-12-01] MEDS ORDERED: NORCO 10-325 T1 EACH PO (08:25)
[2019-12-01] MEDS ORDERED: MIRALAX119 GM PO (08:26)
--- NOTE | 2019-12-01 08:50 | NUR ---
PT RESTING IN HIS BED AND STATES HIS ABD PAIN IS AN 8/10. IT WAS NOT YET TIME FOR ADDITIONAL NORCO WHICH HE REQUESTED. PT STATES UNDERSTANDING AND WAS MEDICATED WITH MOTRIN. ABD SOUNDS ACTIVE AND HE HAD A LOOSE BM TODAY. PT ATE THIS BREAKFAST AND TOLERATED IT WILL WITHOUT ANY NAUESA. PT POORLY TOLERATED HIS ABD LOVENOX INJECTION AND YELLED OUT WHEN IT WAS GIVEN. THE SITE CONTINUES TO APPER HEALTHY AT THE INJECTION SITE. MIDLINE ABD INCISION HAS EWA IN PLACE AND APPEARS HEALTHY WITH NO PROBLEMS NOTED.
--- NOTE | 2019-12-01 08:51 | NUR ---
PATIENT WAS WALKING TOWARDS THE [facility]. HE HAD HIS CUP WITH I ASKED HIM IF HE NEEDED IT RE FILLED AND HE SAID YES. SO I REFILLED IT WITH ICE WATER.
--- NOTE | 2019-12-01 10:05 | NUR ---
PT STATES HIS PAIN IS NOW A 6/10 AND HE WAS MEDICATED ORDERED, SEE EMAR. EVERYOTHER STAPLE FROM THE PT'S ABD REMOVED ORDERED, PT TOLERATED IT WELL. INCISION SITE REAMINS INTACT WITH NO S/S OF INFECTION NOTED.
--- NOTE | 2019-12-02 07:08 | DS ---
[facility] [address] [place], [place] [address] Signed ADMISSION DATE: 11/25/2019 DISCHARGE DATE: 12/01/2019 FINAL DIAGNOSIS: Adenocarcinoma of distal sigmoid colon. PROCEDURE: Low anterior resection with Mora side-to-end colorectal anastomosis in 2 layers. HISTORY OF PRESENT ILLNESS: Romy is a 49-year-old gentleman who for probably a year, maybe longer was having crampy lower abdominal pain. He said the left was worse than the right. He had been having diarrhea, blood, mucus. He tried some Levaquin and Flagyl back in August 2019. He thought maybe he felt a little better, however, the symptoms persisted, so he had a CT scan of the abdomen and pelvis. There was obviously a mass in the mid to distal sigmoid colon. The rectum was not involved. There is no family history of colon cancer or polyps. He was therefore referred to me. He underwent his colonoscopy in October 2019. He had a circumferential sigmoid colon cancer 20 cm. We had to use the gastroscope to get through the tumor and up into the cecum itself. He also had hyperplastic and tubulovillous adenomas polyps removed. He also had a little diverticulosis. We did a CEA level and it came back slightly high at 4.43. He had a CT scan of the chest as well and it showed no evidence of any metastatic disease. He was then brought to the hospital for his resection. He underwent an uncomplicated resection of the sigmoid colon on 11/25/2019. HOSPITAL COURSE: Romy was brought to the hospital as above and completed his sigmoid colectomy with a Mora side-to-end colorectal anastomosis, hand-sewn in 2 layers. Unfortunately, the tumor is lying on his bladder, but did not appear to be penetrating the bladder and it came apart easily. His pathology reports come back with a large tumor, but all 36 lymph nodes were negative. He has had an uncomplicated intra and postop course. He is now tolerating a regular diet, passing lots of flatus and multiple liquid bowel movements. He has been up ambulating, doing quite well. He tried to go without his [place] and by the end of 6 hours he was quite miserable. Otherwise, he is doing quite well. DISCHARGE PLANS AND MEDICATIONS: Romy is going to be discharged to home with a prescription for the [place] 10/325 one tablet p.o. q.4 hours p.r.n. for severe postoperative pain. Dispense 25 tablets with no refills. He can use Tylenol, ibuprofen, or Aleve as needed for vccf-kq-khyxzqwv postoperative pain. He can purchase that ztoo-upu-kuzebkw. If he is constipated, he is well aware of MiraLAX, which he can purchase oprt-xdu-parxzil. He has no chronic Electronically Signed By: CRISTA PULLIAM MD 12/02/19 0708 PATIENT NAME: ROMY OLSON DISCHARGE SUMMARY DATE OF : 74 REPORT #: [id number] PHYSICIAN: CRISTA PULLIAM MD PCP: CRUZ HERNANDEZ MD REPORT IS CONFIDENTIAL AND NOT TO BE RELEASED WITHOUT AUTHORIZATION [place] [id number] [place], [place] [address] Signed medications. We are going to remove half of the kelvin. He can perform his activities of daily living including walking up and down stairs and showering and bathing as usual. We will have him back in the office here in a few days for followup. He has expressed understanding and agrees to above plan. MD THERON Bliss/ESPERANZAL /[id number] cc: MD Dr. Cruz Bliss Copies: CRISTA PULLIAM MD ~ Electronically Signed By: CRISTA PULLIAM MD 12/02/19 0708 PATIENT NAME: ROMY OLSON DISCHARGE SUMMARY DATE OF : 74 REPORT #: [id number] PHYSICIAN: CRISTA PULLIAM MD PCP: CRUZ HERNANDEZ MD REPORT IS CONFIDENTIAL AND NOT TO BE RELEASED WITHOUT AUTHORIZATION
== END 2019-12-01 10:30 | disposition home or self-care (01) | DRG 331 ==
LOC: DSVR 11-25 07:00 → MS 11-25 08:45
PROVIDERS: ADMIT Colon & Rectal Surgery
PROC: 3E0T3BZ Introduction of Anesthetic Agent into Peripheral Nerves and Plexi, Percutaneous Approach (ICD-10-PCS; 2019-11-25)
PROC: 0DTN0ZZ Resection of Sigmoid Colon, Open Approach (ICD-10-PCS; principal; 2019-11-25 10:45)
DX: C18.7 Malignant neoplasm of sigmoid colon (principal); G89.18 Other acute postprocedural pain; I10 Essential (primary) hypertension; F17.210 Nicotine dependence, cigarettes, uncomplicated; Z79.899 Other long term (current) drug therapy; Z79.891 Long term (current) use of opiate analgesic
CPT/HCPCS: 00790; 36415; 64488; 76942; 80048; 82378; 83735; 84100; 85025; 99406; C9113; J0690; J1100; J1170; J1644; J1650; J1885; J2001; J2250; J2405; J2704; J2795; J3010; J7121

== ENCOUNTER 2021-04-04 07:49 | Day surgery (SDC) | payer BC ==
[~2021-04-04] VITALS: Ht 175.3 cm; Wt 115.4 kg
[~2021-04-04 07:49] MED LIST changes: +CANDICIDAL CAP1 EACH; +DAILY VALUE1 EACH PO; +MIRALAX119 GM PO; +NICODERM CQ1 EAC1 TD; +NORCO 10-325 T1 EACH PO; +VITAMIN D350 MC3 PO
[2021-04-04] MEDS ORDERED: ZESTRIL5 MG PO (08:09)
[2021-04-04] MEDS ORDERED: GLUCOPHAGE500 MG PO (08:09)
--- NOTE | 2021-04-04 09:42 | NUR ---
04/04/21 0942 Gail Cox 0939- PT ARRIVES TO PACU EASILY AROUSABLE TO VOICE. PT REPORTS NO PAIN OR NAUSEA AND FALLS BACK TO SLEEP. RESP EVEN AND UNLABORED. OXYGEN SAT HIGH 90'S TO 100% ON 2L VIA NC. 0942- OXYGEN TITRATED OFF.
--- NOTE | 2021-04-05 09:00 | OR ---
[facility] [address] [place], [place] [address] Signed DATE OF OPERATION: 04/04/2021 SURGEON: Crista Pulliam MD PREOPERATIVE DIAGNOSES: 1. Colonoscopy with sigmoid colon cancer on October 27, 2019. 2. Sigmoid resection on November 25, 2019 (stage II). 3. Personal history of colonic polyps. 4. Pandiverticulosis. 5. Tattoo proximal transverse colon. POSTOPERATIVE DIAGNOSES: 1. 5 mm polyp at 52 cm. 2. 5 mm polyp proximal transverse colon/tattoo at 75 cm. 3. 4 mm polyp at 38 cm. 4. Minimal pandiverticulosis. 5. Mora colorectal anastomosis. PROCEDURE: Colonoscopy with hot biopsy. ESTIMATED BLOOD LOSS: None. INDICATIONS: Romy is a 51-year-old gentleman who returns for followup colonoscopy. He had left lower quadrant abdominal pain for over a year. He came for colonoscopy on October 27, 2019. He had a circumferential tumor in the sigmoid colon at 20 cm. That had to be resected on November 25, 2019. He has stage II colon cancer. He has been following along with his medical oncologist. He is not requiring chemotherapy at this time. He said he is doing very well. He said he has actually gained back some weight. He is also known to have multiple colonic polyps throughout the colon. We did leave a tattoo in the proximal transverse colon. He is also known to have pandiverticulosis. He gives no family history of colon cancer or polyps. In the office, I gave him a pamphlet on colonoscopy. Of course, he recalls the test quite well. He recalls our bowel prep quite well. He also does well with his Versed and fentanyl. He knows there is risk including, but not limited to gas bloating, crampy abdominal pain, bleeding, perforation requiring surgery, and missed diagnosis. He had expressed understanding and wished to proceed. Electronically Signed By: CRISTA PULLIAM MD 04/05/21 0900 PATIENT NAME: ROMY OLSON OPERATIVE REPORT DATE OF : 74 REPORT #: [id number] PHYSICIAN: CRISTA PULLIAM MD PCP: LILLY HERNANDEZ MD REPORT IS CONFIDENTIAL AND NOT TO BE RELEASED WITHOUT AUTHORIZATION [facility] [address] [place], [place] [address] Signed PROCEDURE NOTE: Romy was taken into our endoscopy suite and placed in the left lateral decubitus position. He was given 5 mg of Versed and 100 mcg of fentanyl to cover the case. A digital rectal exam was performed and this was unremarkable. The adult colonoscope was introduced and advanced under direct visualization of camera without difficulty. We could easily see the mora colorectal anastomosis. It is well healed circumferentially. No ulceration granulation tissue or any recurrence noted. The scope was passed in all the way into the cecum without difficulty. His prep was quite excellent. We could easily see the appendiceal orifice and ileocecal valve. The scope was then slowly withdrawn. We could easily see the tattoo in the proximal transverse colon at 75 cm. There was a small polypoid lesion in the base of that tattoo. It was removed completely and destroyed completely with the help of hot biopsy forceps. We also saw few diverticula in the colon. They were moderate in size, few in number, and scattered about. We also took out two additional polyps at 52 and at 38 cm. Once back in the rectum, the scope had been retroflexed. There was no additional pathology noted above the anal canal. After this, the gas was suctioned out and the colonoscope removed. Romy tolerated the procedure quite well. RECOMMENDATIONS: I will see Romy back in my office in 7 to 14 days to review his results. Crista Pulliam MD ALB/MODL /[id number] cc: MD Cece Bliss MD Andrea Carrasco, MD Copies: CRISTA PULLIAM MD Electronically Signed By: CRISTA PULLIAM MD 04/05/21 0900 PATIENT NAME: ROMY OLSON OPERATIVE REPORT DATE OF : 74 REPORT #: [id number] PHYSICIAN: CRISTA PULLIAM MD PCP: LILLY HERNANDEZ MD REPORT IS CONFIDENTIAL AND NOT TO BE RELEASED WITHOUT AUTHORIZATION [address] [address] Signed CECE NICOLAS MD ~ Electronically Signed By: CRISTA PULLIAM MD 04/05/21 0900 PATIENT NAME: ROMY OLSON OPERATIVE REPORT DATE OF : 74 REPORT #: [id number] PHYSICIAN: CRISTA PULLIAM MD PCP: LILLY HERNANDEZ MD REPORT IS CONFIDENTIAL AND NOT TO BE RELEASED WITHOUT AUTHORIZATION
--- NOTE | 2021-04-05 17:09 | PATH ---
[facility] [address] [place], [place] [address] Signed SPECIMEN(S): A DESCENDING POLYP 52 CM SPECIMEN(S): B PROXIMAL TRANSVERSE POLYP 75 CM SPECIMEN(S): C DESCENDING POLYP 38 CM SPECIMEN SOURCE: A. DESCENDING POLYP 52 CM B. PROXIMAL TRANSVERSE POLYP 75 CM C. DESCENDING POLYP 38 CM CLINICAL HISTORY: Colonoscopy. History of colon CA, polyps. Postop: Polyps. MICROSCOPIC DESCRIPTION: Histologic sections of all submitted blocks are examined by light microscopy. These findings, together with the gross examination, support the pathologic diagnosis. FINAL PATHOLOGIC DIAGNOSIS: A. Colon, descending, polyp at 52 cm, polypectomy: - Tubular adenoma. - Negative for high-grade dysplasia or malignancy. B. Colon, proximal transverse, polyp at 75 cm, polypectomy: - Tubular adenoma. - Negative for high-grade dysplasia or malignancy. C. Colon, descending, polyp at 38 cm, polypectomy: - Colonic mucosa with no histopathologic abnormality. - Negative for dysplasia or malignancy. NAL:cml:C2NR GROSS DESCRIPTION: Three specimens are received in three containers, labeled "KAREEM." A. The specimen, labeled "KAREEM, descending colon polyp at 52 cm," is received in formalin and consists of one salinas soft tissue fragment that measures 0.2 cm in greatest dimension. The specimen is entirely submitted in cassette (A1). B. The specimen, labeled "KAREEM, proximal transverse colon polyp at 75 cm," is received in formalin and consists of one salinas soft tissue fragment that measures 0.2 cm in greatest dimension. The specimen is entirely submitted in cassette (B1). C. The specimen, labeled "KAREEM, descending colon polyp at 38 cm," is received in formalin and consists of one salinas soft tissue fragment that measures 0.2 cm in greatest dimension. The specimen is PATIENT NAME: ROMY OLSON PATHOLOGY DATE OF : 74 REPORT #: [id number] PHYSICIAN: JIMMIE PATHOLOGY PCP: LILLY HERNANDEZ MD REPORT IS CONFIDENTIAL AND NOT TO BE RELEASED WITHOUT AUTHORIZATION [facility] [address] [place], [place] [address] Signed entirely submitted in cassette (C1). JS (under the direct supervision of a pathologist) The Gross Description was prepared using a voice recognition system. The report was reviewed for accuracy; however, sound-alike word errors, addition and/or deletions may occur. If there is any question about this report, please contact Client Services. PERFORMING LABORATORY: The technical component was performed by [facility] [address] (Guest Services Director: Jessica Osorio MD; CLIA# [id number]). Professional [facility], [address] [address] (CLIA# [id number]). Diagnostician: Megha Tuttle MD Pathologist Electronically Signed 04/05/2021 Copies: ~ PATIENT NAME: ROMY OLSON PATHOLOGY DATE OF : 74 REPORT #: [id number] PHYSICIAN: JIMMIE MARRERO PCP: LILLY HERNANDEZ MD REPORT IS CONFIDENTIAL AND NOT TO BE RELEASED WITHOUT AUTHORIZATION
== END 2021-04-04 10:35 | disposition home or self-care (01) ==
LOC: DS 07:49 → OPS 07:49 → DS 09:30 → OPS 10:30 → DS 10:30 → OPS 10:35
PROVIDERS: ATTEND Colon & Rectal Surgery
PROC: 0DBL8ZX Excision of Transverse Colon, Via Natural or Artificial Opening Endoscopic, Diagnostic (ICD-10-PCS; 2021-04-04)
PROC: 0DBM8ZX Excision of Descending Colon, Via Natural or Artificial Opening Endoscopic, Diagnostic (ICD-10-PCS; principal; 2021-04-04 09:30)
DX: Z12.11 Encounter for screening for malignant neoplasm of colon (principal); D12.4 Benign neoplasm of descending colon; D12.3 Benign neoplasm of transverse colon; K57.30 Diverticulosis of large intestine without perforation or abscess without bleeding; I10 Essential (primary) hypertension; F17.210 Nicotine dependence, cigarettes, uncomplicated; Z85.038 Personal history of other malignant neoplasm of large intestine
CPT/HCPCS: 99153; G0500; J2250; J3010; J7121

== ENCOUNTER 2022-06-17 06:05 | Day surgery (SDC) | payer BC ==
[~2022-06-17] VITALS: Ht 175.3 cm; Wt 113.6 kg
[~2022-06-17 06:05] MED LIST changes: +ESCITALOPRAM OX10 MG PO; +GLUCOPHAGE500 MG PO; +LOSARTAN POTASS50 MG PO; +ZESTRIL5 MG PO
--- NOTE | 2022-06-17 08:03 | NUR ---
06/17/22 0803 Matias,Anne 0754 PT ARRIVED TO PACU ON 3L VIA NC, VSS. PT WAKES AND IS REOREITNED TO PACU. PT FALLS BACK TO SLEEP AND LARGE AMOUNT OF SNORING NOTED. 0802 O2 TURNED OFF AND PT CONTINUES TO SLEEP.
--- NOTE | 2022-06-17 08:17 | NUR ---
PT ALERT,ORIENTED AND MADE IT KNOWN HE WAS TIRED OF WAITING. ALL QUESTIONS ASKED ANSWERED. [place]'S [place], GAVE BLESSING AND WILL FOLLOW
--- NOTE | 2022-06-17 09:06 | OR ---
[facility] [address] [place], [place] [address] Signed DATE OF OPERATION: 06/17/2022 SURGEON: Crista Pulliam MD PREOPERATIVE DIAGNOSES: 1. Stage II sigmoid colon cancer in 2019 at age 50. 2. Tattoo at 75 cm. 3. Minimal pandiverticulosis. 4. Personal history of colonic polyps. 5. Mora colorectal anastomosis. POSTOPERATIVE DIAGNOSES: 1. Minimal diverticulosis. 2. Mora colorectal anastomosis. 3. Tattoo at 75 cm. PROCEDURE: Colonoscopy without biopsy. ESTIMATED BLOOD LOSS: None. INDICATIONS: Romy is a 52-year-old gentleman, who came in March of 2020 for his initial colonoscopy at the age of 50. He ended up with a stage II sigmoid colon cancer that had to be removed. He also has a tattoo at 75 cm. He has very minimal pandiverticulosis. He has had various colonic polyps removed throughout his colon. He has always done well with Versed and fentanyl. His cancer turned out to be a T3 N0 lesion with 36 negative lymph nodes. He did not undergo chemotherapy. Although the tumor was next to the bladder. He said overall he is feeling well and has gained a little weight. I helped him with his followup colonoscopy in March of 2021 at the age of 51. Again, just minimal pandiverticulosis. Also two small tubular adenomatous polyps. His anastomosis at the top of the rectum was fine. Again, he did well with Versed and fentanyl. He returns now for followup colonoscopy. He said the blood work from his medical oncologist has all been good. In the office, I gave Merna pamphlet on colonoscopy. He recalls the test well. There is risk including, but not limited to gas bloating, crampy abdominal pain, bleeding, perforation requiring surgery, and missed diagnosis. We also discussed the need for IV conscious sedation. He had expressed understanding and wished to proceed. Electronically Signed By: CRISTA PULLIAM MD 06/17/22 0906 PATIENT NAME: ROMY OLSON OPERATIVE REPORT DATE OF : 74 REPORT #: [id number] PHYSICIAN: CRISTA PULLIAM MD PCP: LILLY HERNANDEZ MD REPORT IS CONFIDENTIAL AND NOT TO BE RELEASED WITHOUT AUTHORIZATION [facility] [address] [place], [place] [address] Signed PROCEDURE NOTE: Romy was taken into our endoscopy suite and placed in the left lateral decubitus position. He was given a total of 5 mg of Versed and 100 mcg of fentanyl to cover the case. A digital rectal exam was performed. This was unremarkable. He had good sphincter tone. No external hemorrhoids. He is a large man and we could not quite reach his prostate on this occasion. The adult colonoscope had been introduced and advanced all the way around into the cecum under direct visualization of the camera without difficulty. His prep was quite good as always. We could easily see the appendiceal orifice and the ileocecal valve. The scope was then slowly withdrawn. We took pictures throughout for photodocumentation. We saw very minimal if any diverticula on this occasion. We saw several well-healed polypectomy sites. We found the tattoo back at 75 cm. No evidence of any recurrent polyp at that area. The anastomosis is also well healed and quite patent. No ulceration, granulation tissue or any evidence of recurrence. The rectum was unremarkable. Upon retroflexion of the scope, there was no additional pathology noted above the anal canal. After this, the gas was suctioned out and the colonoscope removed. Romy tolerated the procedure quite well. RECOMMENDATIONS: Romy can follow up in one year for repeat colonoscopy. Crista Pulliam MD [facility] /[id number] cc: MD Crista Grier MD Copies: CECE NICOLAS MD Electronically Signed By: CRISTA PULLIAM MD 06/17/229[address] PATIENT NAME: ROMY OLSON OPERATIVE REPORT DATE OF : 74 REPORT #: [id number] PHYSICIAN: CRISTA PULLIAM MD PCP: LILLY HERNANDEZ MD REPORT IS CONFIDENTIAL AND NOT TO BE RELEASED WITHOUT AUTHORIZATION [address] [address] Signed CRISTA PULLIAM MD ~ Electronically Signed By: CRISTA PULLIAM MD 06/17/229[address] PATIENT NAME: ROMY OLSON OPERATIVE REPORT DATE OF : 74 REPORT #: [id number] PHYSICIAN: CRISTA PULLIAM MD PCP: LILLY HERNANDEZ MD REPORT IS CONFIDENTIAL AND NOT TO BE RELEASED WITHOUT AUTHORIZATION
== END 2022-06-17 09:03 | disposition home or self-care (01) ==
LOC: DS 06:05
PROVIDERS: ATTEND Colon & Rectal Surgery
PROC: 0DJD8ZZ Inspection of Lower Intestinal Tract, Via Natural or Artificial Opening Endoscopic (ICD-10-PCS; principal; 2022-06-17 07:30)
DX: Z12.11 Encounter for screening for malignant neoplasm of colon (principal); Z85.038 Personal history of other malignant neoplasm of large intestine; Z86.010 Personal history of colon polyps; K57.30 Diverticulosis of large intestine without perforation or abscess without bleeding; I10 Essential (primary) hypertension; E66.9 Obesity, unspecified; E11.9 Type 2 diabetes mellitus without complications; Z79.84 Long term (current) use of oral hypoglycemic drugs; Z68.36 Body mass index [BMI] 36.0-36.9, adult; Z88.8 Allergy status to other drugs, medicaments and biological substances
CPT/HCPCS: 99153; G0500; J2250; J3010; J7121

== ENCOUNTER 2025-03-16 05:53 | Day surgery (SDC) | payer BC ==
[2025-03-14 16:15] VITALS: BP 137/89
[~2025-03-16] VITALS: Ht 175.3 cm; Wt 105.9 kg
[~2025-03-16 05:53] MED LIST changes: +GLIPIZIDE ER2.5 MG PO; +LACTATED RINGER'S 1,000 ML IV SCH
[2025-03-16 06:15] VITALS: BP 148/95
[2025-03-16] MEDS ORDERED: propofoL 200 MG/20 ML VIAL ONE (07:00)
[2025-03-16] MEDS ORDERED: IBLOOD GLUCOSE TEST STRIP 1 EA TEST VI PRN (07:00)
[2025-03-16] MEDS ORDERED: LIDOCAINE HCL 2% 5 ML SDV ONE (07:00)
[2025-03-16] MEDS ORDERED: LIDOCAINE HCL 1% 5 ML SDV INJ ONE (07:00)
--- NOTE | 2025-03-16 07:25 | NUR ---
VISITED DURING SPIRITUAL CARE ROUNDS. PT APPEARED TO BE SLEEPING. DID NOT DISTURB. PROVIDED PRAYER.
--- NOTE | 2025-03-16 08:04 | NUR ---
03/16/25 0804 Amparo Farias 0751-PATIENT ARRIVED TO PACU ON 6L MASK NONAROUSABLE SNORING LAYING LEFT LATERAL. ABDOMEN SOFT IVF INFUSING. SR HR 80'S. BP CUFF READJUSTED AND PATIENT REPOSITIONED TO BACK. 0755- PATIENT APNEIC RN DOING JAW THRUST TO MAINTAIN OPEN AIRWAY. PER METAL BUMPER DO NOT NEED TO RECHECK GLUCOSE 0800-PATIENT REACTIVE TO VERBAL STIMULI AND TACTILE STIMULI. ORIENTED TO PACU OPENS EYES MUMBLES AND GOES BACK TO SLEEP. 6L MASK RR EVEN SNORING. IVF INFUSING
[2025-03-16 08:32] VITALS: BP 130/71
--- NOTE | 2025-03-21 09:29 | PATH ---
[facility] [address] [facility] [place] [place] [address] Signed SPECIMEN(S): A SPLENIC FLEXURE COLON POLYP SPECIMEN SOURCE: A. SPLENIC FLEXURE COLON POLYP CLINICAL HISTORY: History of colon CA, post: Polyp A) polyp FINAL PATHOLOGIC DIAGNOSIS: Splenic flexure, polypectomy: - Sessile serrated polyp. DWS:clv MICROSCOPIC EXAMINATION: Histologic sections of all submitted blocks are examined by light microscopy. These findings, together with the gross examination, support the pathologic diagnosis. GROSS DESCRIPTION: The specimen, labeled and designated "Marvin Galeana, splenic flexure colon polyp," is received in formalin and consists of two [place] soft tissue fragments, ranging from 0.5-0.9 cm. Entirely submitted in (A1). AB (under the direct supervision of a pathologist) The Gross Description was prepared using a voice recognition system. The report was reviewed for accuracy; however, sound-alike word errors, addition and/or deletions may occur. If there is any question about this report, please contact Client Services. PERFORMING LABORATORY: Technical component was performed by [facility], [address] [place] [id number] (CLIA# [id number]). Professional interpretation was performed by [facility], [address] [place] [id number] (CLIA#: [id number]). Diagnostician: Dustin Bay MD Pathologist Electronically Signed 03/21/2025 PATIENT NAME: ROMY GALEANA PATHOLOGY DATE OF : 74 REPORT #: [id number] PHYSICIAN: JIMMIE PATHOLOGY PCP: ESE PERKINS MD REPORT IS CONFIDENTIAL AND NOT TO BE RELEASED WITHOUT AUTHORIZATION [address] [facility] [place], [place] [address] Signed Copies: ~ PATIENT NAME: ROMY GALEANA PATHOLOGY DATE OF : 74 REPORT #: [id number] PHYSICIAN: JIMMIE PATHOLOGY PCP: ESE PERKINS MD REPORT IS CONFIDENTIAL AND NOT TO BE RELEASED WITHOUT AUTHORIZATION
== END 2025-03-16 08:40 | disposition home or self-care (01) ==
LOC: DS 05:53
PROVIDERS: ATTEND Surgery
PROC: 0DBL8ZZ Excision of Transverse Colon, Via Natural or Artificial Opening Endoscopic (ICD-10-PCS; principal; 2025-03-16 07:30)
DX: K63.5 Polyp of colon (principal); K64.8 Other hemorrhoids; K57.30 Diverticulosis of large intestine without perforation or abscess without bleeding; I10 Essential (primary) hypertension; E66.9 Obesity, unspecified; Z68.34 Body mass index [BMI] 34.0-34.9, adult; Z79.84 Long term (current) use of oral hypoglycemic drugs; Z79.899 Other long term (current) drug therapy; Z85.038 Personal history of other malignant neoplasm of large intestine; Z88.8 Allergy status to other drugs, medicaments and biological substances; Z90.49 Acquired absence of other specified parts of digestive tract
CPT/HCPCS: 00811; J2003; J2704; J7121